=== PATIENT | male | born 1960 | race Caucasian/White ===

== ENCOUNTER 2020-12-24 14:24 | Emergency (ER) | payer OTHER ==
[2020-12-24 14:35] VITALS: BP 132/86; PULSE 86; TEMP 100.2; BMI 26.2
[2020-12-24] MEDS ORDERED: SODIUM CHLORIDE 1,000 ML IV STA ×2 (14:35→17:39)
[2020-12-24] MEDS ORDERED: ACETAMINOPHEN 1000 MG/100 ML VIAL (NON FORMULARY) IVPB ONE (14:35)
[2020-12-24] MEDS ORDERED: ACETAMINOPHEN INJECTION 100 ML IVPB ONE (14:37)
[2020-12-24 15:16] LABS: HEMATOCRIT 42.2 % (35.4-49); HEMOGLOBIN 14.5 GM/dl (11.7-16.9); MCH 33.7 pg (25.7-33.7); MCHC 34.3 g/dl (32.0-35.9); MEAN CELL VOLUME 98.2 fl (80-96); MEAN PLT VOLUME 7.2 fl (7.5-11.1); PLATELET COUNT 106 10^3/uL (134-434); RDW 12.6 % (11.9-15.9); WHITE BLOOD COUNT 3.5 K/mm3 (4.0-10.8)
[2020-12-24 15:24] LABS: BILIRUBIN,TOTAL 1.2 mg/dl (0.2-1); CALCIUM 8.3 mg/dl (8.5-10); CREATININE 0.8 mg/dl (0.55-1.3); TOT PROT 6.9 g/dl (6.4-8.2)
[2020-12-24] MEDS ORDERED: KETOROLAC TROMETHAMINE 30 MG/1 ML VIAL IVPUSH ONE (18:00)
[2020-12-24] MEDS ORDERED: KETOROLAC TROMETHAMINE 15 MG/ML VIAL ONE (18:25)
[2020-12-24 20:47] LABS: PLATELET ESTIMATE SLT DECREASE
== END 2020-12-24 19:43 | disposition home or self-care (01) ==
LOC: FER 14:24
PROC: 3E0333Z Introduction of Anti-inflammatory into Peripheral Vein, Percutaneous Approach (ICD-10-PCS; principal; 2020-12-24)
PROC: 3E0333Z Introduction of Anti-inflammatory into Peripheral Vein, Percutaneous Approach (ICD-10-PCS; 2020-12-24)
PROC: 3E0337Z Introduction of Electrolytic and Water Balance Substance into Peripheral Vein, Percutaneous Approach (ICD-10-PCS; 2020-12-24)
PROC: 3E0337Z Introduction of Electrolytic and Water Balance Substance into Peripheral Vein, Percutaneous Approach (ICD-10-PCS; 2020-12-24)
DX: R50.9 Fever, unspecified (principal); M79.10 Myalgia, unspecified site; Z11.52 Encounter for screening for COVID-19
CPT/HCPCS: 36415; 71045-TC-FY; 80053; 81003; 81015; 83690; 85025; 87040; 87086; 87804; 99284-25; C9803; J0131; U0003; U0005

== ENCOUNTER 2020-12-25 13:33 | Inpatient (IN) | payer OTHER ==
[2020-12-25] MEDS ORDERED: SODIUM CHLORIDE 2,517 ML IV ONE (13:46)
[2020-12-25] MEDS ORDERED: ACETAMINOPHEN 1000 MG/100 ML VIAL (NON FORMULARY) IVPB ONE (14:35)
[2020-12-25] MEDS ORDERED: ACETAMINOPHEN INJECTION 100 ML IVPB ONE (14:39)
[2020-12-25 14:51] LABS: BASO % 0.3 % (0-2.0); EOS % 0.1 % (0-4.5); PLATELET COUNT 67 10^3/uL (134-434); RDW 12.4 % (11.9-15.9)
[2020-12-25 14:53] LABS: ALBUMIN 3.5 g/dl (3.4-5.0); BILIRUBIN,TOTAL 1.2 mg/dl (0.2-1); CALCIUM 7.7 mg/dl (8.5-10); CREATININE 0.8 mg/dl (0.55-1.3)
[2020-12-25 14:58] LABS: HEMATOCRIT 38.5 % (35.4-49); HEMOGLOBIN 13.1 GM/dl (11.7-16.9); LYMPH % 3.6 % (8-40); MCH 32.8 pg (25.7-33.7); MCHC 33.9 g/dl (32.0-35.9); MEAN CELL VOLUME 96.8 fl (80-96); MEAN PLT VOLUME 7.8 fl (7.5-11.1); RBC 3.98 M/mm3 (4.00-5.60); WHITE BLOOD COUNT 3.2 K/mm3 (4.0-10.8)
[2020-12-25 15:03] LABS: ACTIVATED PTT 29.2 SECONDS (25.2-36.5)
[2020-12-25 15:10] LABS: INR 1.16 (0.82-1.09); PROTHROMBIN TIME (PATIENT) 12.9 SEC (10.2-13.0)
[2020-12-25] MEDS ORDERED: CEFTRIAXONE 1 GM in DEXTROSE 5%-WATER - 100 ML IVPB ONE (17:11)
[2020-12-25] MEDS ORDERED: DOXYCYCLINE INJECTION 100 MG in DEXTROSE 5%-WATER 100 ML IVPB ONE (17:11)
[2020-12-25] MEDS ORDERED: cefTRIAXone SODIUM 1 GM VIAL ONE (17:14)
[2020-12-25] MEDS ORDERED: DOXYCYCLINE HYCLATE 100 MG VIAL ONE (17:15)
[2020-12-25] MEDS: LACTATED RINGERS SOLUTION 1,000 ML/1,000 ML INFUS.BAG IV SCH (18:50)
[2020-12-25 21:21] VITALS: BMI 31.5
[2020-12-25 21:42] LABS: HEMATOCRIT 36.6 % (35.4-49); HEMOGLOBIN 12.3 GM/dl (11.7-16.9); MCH 32.8 pg (25.7-33.7); MCHC 33.8 g/dl (32.0-35.9); MEAN CELL VOLUME 97.1 fl (80-96); MEAN PLT VOLUME 7.7 fl (7.5-11.1); PLATELET COUNT 58 10^3/uL (134-434); RBC 3.77 M/mm3 (4.00-5.60); RDW 12.5 % (11.9-15.9); WHITE BLOOD COUNT 2.1 K/mm3 (4.0-10.8)
[2020-12-25 22:54] LABS: PLATELET ESTIMATE DECREASED
[2020-12-26] MEDS: MELATONIN 1 MG TABLET PO SCH ×2 (01:32→22:00)
[2020-12-26] MEDS: ACETAMINOPHEN 325 MG TABLET (FP) PO PRN (02:59)
[2020-12-26] MEDS ORDERED: DOXYCYCLINE HYCLATE 100 MG VIAL ONE ×3 (04:37→16:50)
[2020-12-26] MEDS ORDERED: DEXTROSE 5%-WATER 100 ML IVPB ONE ×3 (04:37→16:31)
[2020-12-26] MEDS: DOXYCYCLINE INJECTION 100 MG in DEXTROSE 5%-WATER 100 ML IVPB SCH ×2 (05:09→16:58)
[2020-12-26 08:11] LABS: ALBUMIN 3.3 g/dl (3.4-5.0); BILIRUBIN,TOTAL 1.3 mg/dl (0.2-1); CREATININE 0.7 mg/dl (0.55-1.3)
[2020-12-26 09:13] LABS: ACTIVATED PTT 30.8 SECONDS (25.2-36.5); INR 1.11 (0.82-1.09); PROTHROMBIN TIME (PATIENT) 12.3 SEC (10.2-13.0)
[2020-12-26 09:20] LABS: BASO % 0.3 % (0-2.0); HEMATOCRIT 41.2 % (35.4-49); HEMOGLOBIN 13.4 GM/dl (11.7-16.9); LYMPH % 13.7 % (8-40); MCH 32.2 pg (25.7-33.7); MCHC 32.6 g/dl (32.0-35.9); MEAN CELL VOLUME 98.5 fl (80-96); MONO % 6.3 % (3.8-10.2); NEUT % 79.7 % (42.8-82.8); PLATELET COUNT 67 10^3/uL (134-434); RBC 4.18 M/mm3 (4.00-5.60); RDW 12.6 % (11.9-15.9)
[2020-12-26] MEDS: CEFTRIAXONE 2 GM in DEXTROSE 5%-WATER 2 GM/100 ML BAG IVPB SCH (10:17)
[2020-12-26] MEDS ORDERED: SODIUM CHLORIDE 500 ML IV STA (13:39)
[2020-12-26] MEDS ORDERED: ACETAMINOPHEN 1000 MG/100 ML VIAL (NON FORMULARY) IVPB ONE (15:00)
[2020-12-26] MEDS: ROSUVASTATIN CA 20 MG TABLET (FP) PO SCH (21:24)
[2020-12-26] MEDS: LACTATED RINGERS SOLUTION 1,000 ML/1,000 ML INFUS.BAG IV SCH (21:24)
[2020-12-27] MEDS ORDERED: DEXTROSE 5%-WATER 100 ML IVPB ONE ×2 (04:39→09:56)
[2020-12-27] MEDS ORDERED: DOXYCYCLINE HYCLATE 100 MG VIAL ONE ×3 (04:39→17:12)
[2020-12-27] MEDS: DOXYCYCLINE INJECTION 100 MG in DEXTROSE 5%-WATER 100 ML IVPB SCH ×2 (04:47→17:47)
[2020-12-27] MEDS: ACETAMINOPHEN 325 MG TABLET (FP) PO PRN ×3 (04:53→21:31)
[2020-12-27 08:43] LABS: EOS % 0.3 % (0-4.5); HEMATOCRIT 34.7 % (35.4-49); HEMOGLOBIN 11.7 GM/dl (11.7-16.9); LYMPH % 18.7 % (8-40); MCH 32.9 pg (25.7-33.7); MCHC 33.8 g/dl (32.0-35.9); MEAN CELL VOLUME 97.5 fl (80-96); MONO % 12.3 % (3.8-10.2); NEUT % 68.7 % (42.8-82.8); PLATELET COUNT 59 10^3/uL (134-434); RBC 3.56 M/mm3 (4.00-5.60); RDW 12.7 % (11.9-15.9); WHITE BLOOD COUNT 3.9 K/mm3 (4.0-10.8)
[2020-12-27 08:46] LABS: ALBUMIN 2.9 g/dl (3.4-5.0); BILIRUBIN,TOTAL 1.1 mg/dl (0.2-1); CREATININE 0.7 mg/dl (0.55-1.3); TOT PROT 5.3 g/dl (6.4-8.2)
[2020-12-27] MEDS: CEFTRIAXONE 2 GM in DEXTROSE 5%-WATER 2 GM/100 ML BAG IVPB SCH (10:25)
[2020-12-27] MEDS: valACYclovir HCL 500 MG TABLET (FP) PO SCH (10:26)
[2020-12-27] MEDS: EZETIMIBE 10 MG TABLET (FP) PO SCH (10:26)
[2020-12-27] MEDS: ASPIRIN COATED 81 MG TABLET.EC PO SCH (10:27)
[2020-12-27] MEDS: LACTATED RINGERS SOLUTION 1,000 ML/1,000 ML INFUS.BAG IV SCH (18:54)
[2020-12-27] MEDS: ROSUVASTATIN CA 20 MG TABLET (FP) PO SCH (21:30)
[2020-12-27] MEDS: MELATONIN 1 MG TABLET PO SCH (21:30)
[2020-12-27] MEDS: CARVEDILOL 6.25 MG TABLET (FP) PO SCH (21:30)
[2020-12-27] MEDS: CALCIUM (OYSTER SHELL) 500 MG TABLET (FP) PO SCH (21:31)
[2020-12-28] MEDS ORDERED: DOXYCYCLINE HYCLATE 100 MG VIAL ONE (06:01)
[2020-12-28] MEDS ORDERED: DEXTROSE 5%-WATER 100 ML IVPB ONE ×2 (06:01→09:01)
[2020-12-28] MEDS: DOXYCYCLINE INJECTION 100 MG in DEXTROSE 5%-WATER 100 ML IVPB SCH (06:26)
[2020-12-28] MEDS: ACETAMINOPHEN 325 MG TABLET (FP) PO PRN (06:26)
[2020-12-28 09:15] LABS: BASO % 0.2 % (0-2.0); HEMATOCRIT 32.1 % (35.4-49); HEMOGLOBIN 11.3 GM/dL (11.7-16.9); LYMPH % 32.5 % (8-40); MCH 33.4 pg (25.7-33.7); MCHC 35.1 g/dl (32.0-35.9); MEAN CELL VOLUME 95.3 fl (80-96); MEAN PLT VOLUME 8.5 fl (7.5-11.1); MONO % 11.5 % (3.8-10.2); NEUT % 54.8 % (42.8-82.8); PLATELET COUNT 79 10^3/uL (134-434); RBC 3.37 M/mm3 (4.00-5.60); RDW 13.5 % (11.9-15.9); WHITE BLOOD COUNT 4.5 K/mm3 (4.0-10.0)
[2020-12-28] MEDS: CARVEDILOL 6.25 MG TABLET (FP) PO SCH (09:32)
[2020-12-28] MEDS: EZETIMIBE 10 MG TABLET (FP) PO SCH (09:32)
[2020-12-28] MEDS: ASPIRIN COATED 81 MG TABLET.EC PO SCH (09:33)
[2020-12-28] MEDS: valACYclovir HCL 500 MG TABLET (FP) PO SCH (09:33)
[2020-12-28] MEDS: CEFTRIAXONE 2 GM in DEXTROSE 5%-WATER 2 GM/100 ML BAG IVPB SCH (09:34)
[2020-12-28] MEDS: CALCIUM (OYSTER SHELL) 500 MG TABLET (FP) PO SCH (09:34)
[2020-12-28 09:38] VITALS: BP 134/65; PULSE 65; TEMP 98.1
[2020-12-28 11:21] LABS: ANISOCYTOSIS 0; MACROCYTOSIS 0; PLATELET ESTIMATE DECREASED
[2020-12-28 11:28] LABS: ALBUMIN 2.9 g/dl (3.4-5.0); BILIRUBIN,TOTAL 0.7 mg/dL (0.2-1); BLOOD UREA NITROGEN 11.2 mg/dL (7-18); CREATININE 0.7 mg/dL (0.55-1.3); TOT PROT 5.4 g/dl (6.4-8.2)
[2020-12-28] MEDS ORDERED: POTASSIUM CHLORIDE TABS 20 MEQ TABLET.ER (FP) PO ONE (11:45)
[2020-12-29 14:07] LABS: HEP B CORE AB, TOT Negative (Negative)
== END 2020-12-28 12:30 | disposition home or self-care (01) | DRG 872 ==
LOC: FER 13:33 → FM/S 17:35
PROVIDERS: ADMIT Internal Medicine; ATTEND Nurse Practitioner Family
DX: A41.89 Other specified sepsis (principal); I42.0 Dilated cardiomyopathy; R50.9 Fever, unspecified; E78.5 Hyperlipidemia, unspecified; I44.7 Left bundle-branch block, unspecified; I10 Essential (primary) hypertension; D69.6 Thrombocytopenia, unspecified; R74.01 Elevation of levels of liver transaminase levels; D72.819 Decreased white blood cell count, unspecified; N40.0 Benign prostatic hyperplasia without lower urinary tract symptoms; R94.5 Abnormal results of liver function studies; I25.10 Atherosclerotic heart disease of native coronary artery without angina pectoris; A60.00 Herpesviral infection of urogenital system, unspecified; E83.51 Hypocalcemia; G47.33 Obstructive sleep apnea (adult) (pediatric); E87.6 Hypokalemia
CPT/HCPCS: 36415; 71045-TC-FY; 71275-TC; 76705-TC; 80053; 81003; 81015; 82550; 82553; 83010; 83605; 83615; 84484; 85025; 85045; 85379; 85384; 85610; 85730; 86618; 86704; 86706; 86707; 86708; 86709; 86753; 87040; 87086; 87207; 87340; 87798; 93005; 99285-25; C9803; J0131; Q9967; U0003; U0005

== ENCOUNTER 2022-01-18 07:12 | Day surgery (SDC) | payer OTHER ==
[2022-01-13 15:51] VITALS: BMI 30.8
[2022-01-18 07:35] VITALS: RESP 20
[2022-01-18] MEDS ORDERED: PROPOFOL 120 ML ONE (07:39)
[2022-01-18] MEDS ORDERED: LIDOCAINE HCL/PF 2% SDV 5ML VIAL ONE (07:39)
[2022-01-18 08:42] VITALS: TEMP 97.8
[2022-01-18 09:17] VITALS: BP 111/61; PULSE 52
== END 2022-01-18 09:00 | disposition home or self-care (01) ==
LOC: FASU-ENDO 07:12
PROVIDERS: ATTEND Internal Medicine Gastroenterology
PROC: 0DJD8ZZ Inspection of Lower Intestinal Tract, Via Natural or Artificial Opening Endoscopic (ICD-10-PCS; principal; 2022-01-18 08:18)
DX: Z12.11 Encounter for screening for malignant neoplasm of colon (principal); K57.30 Diverticulosis of large intestine without perforation or abscess without bleeding; Z86.010 Personal history of colon polyps

== ENCOUNTER 2022-09-15 17:54 | Inpatient (IN) | payer OTHER ==
[2022-09-15 19:10] VITALS: RESP 18
[2022-09-15 19:37] LABS: HEMATOCRIT 37.1 % (35.4-49); HEMOGLOBIN 12.4 G/dL (11.7-16.9); MCH 33.5 pg (25.7-33.7); MCHC 33.5 g/dl (32.0-35.9); MEAN CELL VOLUME 99.9 fl (80-96); MEAN PLT VOLUME 7.1 fl (7.5-11.1); PLATELET COUNT 203.3 10^3/uL (134-434); RBC 3.71 10^6/uL (4.00-5.60); RDW 13.9 % (11.9-15.9); WHITE BLOOD COUNT 9.8 10^3/uL (4.0-10.8)
[2022-09-15 19:54] LABS: ALBUMIN 3.3 g/dl (3.4-5.0); BILIRUBIN,TOTAL 0.7 mg/dl (0.2-1); CALCIUM 8.5 mg/dl (8.5-10); CREATININE 0.9 mg/dl (0.55-1.3); TOT PROT 6.4 g/dl (6.4-8.2)
[2022-09-15] MEDS ORDERED: VANCOMYCIN 1 GM in D5W (PRE-DOCKED) 1,000 MG/250 ML (RESTRICTED TO ID ONLY IVPB ONE (20:21)
[2022-09-15] MEDS ORDERED: PIPERACILLIN/TAZOB 3.375 GM 3.375 GM in DEXTROSE 5%-WATER - 50 ML IVPB ONE (20:21)
[2022-09-15] MEDS ORDERED: PIPERACILLIN/TAZOBACTAM 3.375 GM VIAL IVPB ONE (20:27)
[2022-09-15] MEDS ORDERED: VANCOMYCIN 1,000 MG VIAL (RESTRICTED TO ID ONLY) ONE (20:27)
[2022-09-15] MEDS ORDERED: ACETAMINOPHEN 325 MG TABLET (FP) PO ONE (20:50)
[2022-09-15] MEDS ORDERED: ACETAMINOPHEN 325 MG TABLET (FP) ONE (20:51)
[2022-09-15] MEDS ORDERED: morphine CARPU-JECT 4 MG/1 ML DISP.SYRIN IVPUSH ONE (22:12)
[2022-09-15] MEDS ORDERED: morphine SULFATE 4 MG/ML VIAL ONE (22:13)
[2022-09-15] MEDS ORDERED: ROSUVASTATIN CA 20 MG TABLET PO SCH (23:34)
[2022-09-15 23:56] VITALS: BMI 30.8
[2022-09-16] MEDS: CARVEDILOL 12.5 MG TABLET (FP) PO SCH ×2 (00:47→11:22)
[2022-09-16] MEDS: SACUBITRIL/VALSARTAN 49 MG-51 MG TABLET PO SCH ×2 (00:48→11:21)
[2022-09-16] MEDS ORDERED: ACETAMINOPHEN 1000 MG/100 ML BAG IVPB PRN (01:07)
[2022-09-16] MEDS ORDERED: DOCUSATE SODIUM 100 MG CAPSULE (FP) PO PRN (01:09)
[2022-09-16] MEDS: PIPERACILLIN/TAZOB 3.375 GM 3.375 GM in DEXTROSE 5%-WATER - 50 ML IVPB SCH ×2 (02:01→11:48)
[2022-09-16] MEDS ORDERED: PIPERACILLIN/TAZOB 3.375 GM 3.375 GM in DEXTROSE 5%-WATER - 50 ML IVPB SCH (03:00)
[2022-09-16] MEDS ORDERED: VANCOMYCIN HCL 1,500 MG in DEXTROSE 5%-WATER - 250 ML IVPB SCH (09:00)
[2022-09-16] MEDS ORDERED: VANCOMYCIN PREMIX 1.5 GM 1,500 MG/300 ML BAG IVPB SCH (09:00)
[2022-09-16] MEDS ORDERED: LIDOCAINE HCL 1%, 10 MG/ML (50 mL VIAL) SQ ONE (09:13)
[2022-09-16] MEDS ORDERED: LACTOBACILLUS ACIDOPHILUS 1 TABLET PO SCH (10:00)
[2022-09-16] MEDS ORDERED: MULTIVITAMINS (DAILY MVI) TABLET (FP) PO SCH (10:00)
[2022-09-16] MEDS ORDERED: valACYclovir HCL 500 MG TABLET (FP) PO SCH (10:00)
[2022-09-16 14:03] VITALS: BP 101/64; PULSE 74; TEMP 98.5
== END 2022-09-16 15:29 | disposition home or self-care (01) | DRG 603 ==
LOC: FER 17:54 → FM/S 23:21
PROVIDERS: ADMIT Student in an Organized Health Care Education/Training Program; ATTEND Internal Medicine
PROC: 0J973ZX Drainage of Back Subcutaneous Tissue and Fascia, Percutaneous Approach, Diagnostic (ICD-10-PCS; principal; 2022-09-16)
DX: L03.317 Cellulitis of buttock (principal); I42.0 Dilated cardiomyopathy; R50.9 Fever, unspecified; L02.31 Cutaneous abscess of buttock; I25.10 Atherosclerotic heart disease of native coronary artery without angina pectoris; E78.5 Hyperlipidemia, unspecified; I44.7 Left bundle-branch block, unspecified; N20.0 Calculus of kidney; I10 Essential (primary) hypertension; G47.33 Obstructive sleep apnea (adult) (pediatric); R50.81 Fever presenting with conditions classified elsewhere; A60.00 Herpesviral infection of urogenital system, unspecified; Z96.652 Presence of left artificial knee joint
CPT/HCPCS: 0241U-QW; 36415; 74177-TC; 80053; 85027; 87070; 87205; 99285-25; Q9967